=== PATIENT | male | born 1980 | race Caucasian/White ===

== ENCOUNTER → 2017-10-05 | Outpatient (CLI) | payer BC | END | disposition home or self-care (01) | LOC: PCVCIMAG 07:57 | DX: I82.401 Acute embolism and thrombosis of unspecified deep veins of right lower extremity (principal) | CPT/HCPCS: 93971 ==

== ENCOUNTER → 2018-03-31 | Outpatient (CLI) | payer BC ==
--- NOTE | 2018-03-31 18:12 | PCVCIMAG ---
EXAM: VENOUS DUPLEX RIGHT LOWER EXTREMITY INDICATION: Leg pain and swelling. FINDINGS: Right leg: No thrombus in the common or main femoral veins. Since September 2017 nonocclusive thrombus in the lower main femoral vein has resolved. Mild nonocclusive thrombus lower popliteal vein is less prominent than prior study. Previous thrombus in the calf veins has resolved. IMPRESSION: Mild nonocclusive thrombus lower popliteal vein has decreased in amount since September 2017 study. Previous nonocclusive thrombus in the lower main femoral vein and posterior tibial vein has resolved since the prior study. LOC:[id number]
== END | disposition home or self-care (01) ==
LOC: PCVCIMAG 13:06
PROVIDERS: ATTEND Internal Medicine Cardiovascular Disease
DX: I82.90 Acute embolism and thrombosis of unspecified vein (principal); M79.89 Other specified soft tissue disorders
CPT/HCPCS: 93971

== ENCOUNTER → 2018-07-13 | Outpatient (CLI) | payer BC ==
--- NOTE | 2018-07-13 11:33 | PCVCIMAG ---
EXAM: VENOUS DUPLEX RIGHT LOWER EXTREMITY INDICATION: Leg pain and swelling. Prior DVT. FINDINGS: Right leg: No thrombus in the common or main femoral veins. Minimal residual nonocclusive thrombus lower popliteal vein has decreased in amount since March 2018 study. Calf veins are unremarkable where seen. IMPRESSION: Minimal nonocclusive thrombus lower right popliteal vein has decreased in amount since March 2018 study. LOC:[id number]
== END | disposition home or self-care (01) ==
LOC: PCVCIMAG 13:00
PROVIDERS: ATTEND Internal Medicine Cardiovascular Disease
DX: I82.401 Acute embolism and thrombosis of unspecified deep veins of right lower extremity (principal); I26.99 Other pulmonary embolism without acute cor pulmonale; Z79.82 Long term (current) use of aspirin
CPT/HCPCS: 93971